=== PATIENT | female | born 1995 | race Caucasian/White ===

== ENCOUNTER 2020-11-15 11:59 | Emergency (ER) | payer OTHER ==
[~2020-11-15] VITALS: Ht 165.1 cm; Wt 67.2 kg
[2020-11-15] MEDS ORDERED: DEPO150I12 IM (12:27)
[2020-11-15 14:06] LABS: BASO # 0.1 10^3/uL (0.0-0.2); BASO % 0.9 % (0.0-1.0); EOS # 0.1 10^3/uL (0.0-0.5); EOS % 1.7 % (0.0-3.0); HEMATOCRIT 42.8 % (36.0-47.0); HEMOGLOBIN 14.2 g/dl (12.0-15.5); LYMPH # 2.3 10^3/uL (1.5-5.0); LYMPH % 29.5 % (24.0-44.0); MEAN CORPUSCULAR HEMOGLOBIN 32.7 pg (27.0-33.0); MEAN CORPUSCULAR HGB CONC 33.2 g/dl (32.0-36.5); MEAN CORPUSCULAR VOLUME 98.6 fl (80.0-96.0); MONO # 0.6 10^3/uL (0.0-0.8); MONO % 7.9 % (0.0-5.0); NEUTROPHILS # 4.7 10^3/uL (1.5-8.5); NEUTROPHILS % 59.9 % (36.0-66.0); PLATELET COUNT, AUTOMATED 209 10^3/uL (150-450); RED BLOOD COUNT 4.34 10^6/uL (4.00-5.40); WHITE BLOOD COUNT 7.8 10^3/uL (4.0-10.0)
[2020-11-15 14:20] LABS: INR 0.95; PROTHROMBIN TIME 12.9 SECONDS (12.5-14.3)
[2020-11-15 14:21] LABS: PARTIAL THROMBOPLASTIN TIME 26.7 SECONDS (24.2-38.5)
[2020-11-15 14:37] LABS: HCG, SERUM QUALITATIVE NEGATIVE (NEGATIVE)
[2020-11-15 14:41] LABS: ALBUMIN 4.1 GM/DL (3.2-5.2); ALT/SGPT 21 U/L (12-78); BILIRUBIN,TOTAL 0.7 MG/DL (0.2-1.0); BLOOD UREA NITROGEN 13 MG/DL (7-18); CARBON DIOXIDE LEVEL 24 MEQ/L (21-32); CHLORIDE LEVEL 108 MEQ/L (98-107); CK-MB VALUE MASS < 1.0 NG/ML (<3.6); CPK CREATINE PHOSPHOKINASE 44 U/L (26-192); CREATININE FOR GFR 0.58 MG/DL (0.55-1.30); FREE T4 1.02 NG/DL (0.76-1.46); GLOMERULAR FILTRATION RATE > 60.0 (>60); GLUCOSE, FASTING 81 MG/DL (70-100); MAGNESIUM LEVEL 2.2 MG/DL (1.8-2.4); MB/CK RELATIVE INDEX 2.27 (< OR =4); POTASSIUM SERUM 4.1 MEQ/L (3.5-5.1); SODIUM LEVEL 139 MEQ/L (136-145); THYROID STIMULATING HORMONE 0.814 uIU/ML (0.358-3.740); TOTAL PROTEIN 7.3 GM/DL (6.4-8.2); TROPONIN I < 0.02 NG/ML (< 0.10)
[2020-11-15 14:42] LABS: D-DIMER QUANT < 270 ng/ml (<500)
--- NOTE | 2020-11-15 15:29 | REP ---
INDICATION: near Syncope. COMPARISON: None. TECHNIQUE: Helical scanning is acquired. 5 mm axial images were reformatted. Coronal MPR images were generated. FINDINGS: Bone window settings demonstrate an intact bony calvarium. There is no evidence of skull fracture or incidental bony calvarial lesion. The visualized paranasal sinuses appear clear. No intraorbital abnormality is seen. On soft tissue window setting images; the lateral, third, and fourth ventricles are normal in size and position. Howell-white differentiation pattern is normal above and below the tentorium. There are is no evidence of intracranial hemorrhage. No mass, edema, infarction, or midline shift is seen. No extra-axial fluid collection is appreciated. IMPRESSION: Negative noncontrast head CT. <Electronically signed by Radames Anglin > 11/15/20 [id number]
[2020-11-15 16:00] VITALS: BP 115/62
--- NOTE | 2020-11-16 13:29 | ECGEPIP ---
[facility] - ED Test Date: 2020-11-15 Pat Name: TONIA MARTIN Department: Room: - Gender: Male Electroencephalogram Technologist: JONATHAN : 1995 Requested By: LEDY Larson Order Number: [id number] Reading MD: Alisha Lam Measurements Intervals Rew Rate: 56 P: 61 VT: 159 QRS: 62 QRSD: 97 T: 46 QT: 401 QTc: 390 Interpretive Statements SINUS BRADYCARDIA WITH SINUS ARRHYTHMIA No prior Electronically Signed on 11-16-2020 13:29:10 EST by Alisha Lam
== END 2020-11-15 16:15 | disposition home or self-care (01) ==
LOC: EDSEX 11:59 → M ED 11:59
DX: R55 Syncope and collapse (principal); Z79.3 Long term (current) use of hormonal contraceptives

== ENCOUNTER 2021-04-25 19:31 | Emergency (ER) | payer OTHER ==
[~2021-04-25] VITALS: Ht 165.1 cm; Wt 68.8 kg
[~2021-04-25 19:31] MED LIST: DEPO150I12 IM
[2021-04-25 20:03] LABS: BASO # 0.1 10^3/uL (0.0-0.2); BASO % 0.7 % (0.0-1.0); EOS # 0.2 10^3/uL (0.0-0.5); EOS % 1.8 % (0.0-3.0); HEMOGLOBIN 13.6 g/dl (12.0-15.5); LYMPH # 2.9 10^3/uL (1.5-5.0); LYMPH % 29.9 % (24.0-44.0); MEAN CORPUSCULAR HEMOGLOBIN 32.9 pg (27.0-33.0); MEAN CORPUSCULAR VOLUME 96.9 fl (80.0-96.0); MONO # 0.6 10^3/uL (0.0-0.8); MONO % 6.2 % (2.0-8.0); PLATELET COUNT, AUTOMATED 230 10^3/uL (150-450); RED BLOOD COUNT 4.13 10^6/uL (4.00-5.40); WHITE BLOOD COUNT 9.8 10^3/uL (4.0-10.0)
[2021-04-25 20:30] LABS: BLOOD UREA NITROGEN 16 MG/DL (7-18); CARBON DIOXIDE LEVEL 26 MEQ/L (21-32); CHLORIDE LEVEL 108 MEQ/L (98-107); CREATININE FOR GFR 0.63 MG/DL (0.55-1.30); GLOMERULAR FILTRATION RATE > 60.0 (>60); GLUCOSE, FASTING 118 MG/DL (70-100); POTASSIUM SERUM 3.5 MEQ/L (3.5-5.1); SODIUM LEVEL 140 MEQ/L (136-145)
--- NOTE | 2021-04-25 22:59 | REPVR ---
PROCEDURE INFORMATION: Exam: US , Transvaginal Exam date and time: 04/25/2021 9:28 PM Age: 25 years old Clinical indication: Pain; Other: RT adnexa and bleeding vag; Gestational age or lmp: Unk; ; Additional info: Cramping/bleeding TECHNIQUE: Imaging protocol: Real-time transvaginal obstetrical ultrasound of the maternal pelvis with image documentation. Transvaginal imaging was used for better evaluation of the fetus, adnexa, and/or cervix. COMPARISON: No relevant prior studies available. FINDINGS: Gestation: No intrauterine is identified. MATERNAL: Uterus: The uterus measures 6.7 x 3.7 x 5.1 cm. The uterus is retroverted. The endometrium measures 2.5 mm. Right adnexa: The right ovary measures 3.2 x 2.1 x 1.8 cm. Normal vascular flow. There is a heterogeneous, predominantly echogenic mass in the right adnexal region, located superiorly to the right ovary, measuring 2.9 x 1.8 x 1.9 cm. This lesion demonstrates minimal peripheral vascular flow. Although this does not have the typical sonographic appearance an ectopic , recommend close clinical follow-up in this regard. Left adnexa: The left ovary measures 3.1 x 1.9 x 2.3 cm. Normal vascular flow. Intraperitoneal space: Trace free fluid in the right adnexal region. IMPRESSION: 1. No intrauterine is identified. 2. Heterogeneous, predominantly echogenic mass in the right adnexal region, located superiorly to the right ovary, measuring 2.9 x 1.8 x 1.9 cm. This lesion demonstrates minimal peripheral vascular flow. Although this does not have the typical sonographic appearance an ectopic , recommend close clinical follow-up in this regard. Electronically signed by: Kylie Salguero On 04/25/2021 22:59:05 PM
[2021-04-25 23:37] VITALS: BP 114/61
--- NOTE | 2021-04-26 15:18 | ED PDOC ---
Post-Departure Follow-Up 1st trimester us faxed to dr brown for fu Vi Wilkes MD Apr 26, 2021 15:18
== END 2021-04-25 23:40 | disposition home or self-care (01) ==
LOC: M ED 19:31
DX: O26.891 Other specified pregnancy related conditions, first trimester (principal); R10.2 Pelvic and perineal pain

== ENCOUNTER → 2021-04-26 | Outpatient (CLI) | payer OTHER | LOC: M LAB 15:27 | PROVIDERS: ATTEND Physician Assistant | DX: O26.899 Other specified pregnancy related conditions, unspecified trimester (principal); Z3A.00 Weeks of gestation of pregnancy not specified ==

== ENCOUNTER → 2021-04-27 | Outpatient (REF) | payer OTHER | LOC: M PLALAB 12:18 | PROVIDERS: ATTEND Specialist | DX: N92.6 Irregular menstruation, unspecified (principal) ==

== ENCOUNTER → 2021-04-27 | Outpatient (REF) | payer OTHER | LOC: M SFHCWAGY 19:20 | PROVIDERS: ATTEND Specialist | DX: N92.6 Irregular menstruation, unspecified (principal) ==

== ENCOUNTER → 2021-04-30 | Outpatient (REF) | payer OTHER ==
[2021-04-30 13:33] LABS: HEMATOCRIT 41.1 % (36.0-47.0); HEMOGLOBIN 13.7 g/dl (12.0-15.5); MEAN CORPUSCULAR HEMOGLOBIN 32.5 pg (27.0-33.0); MEAN CORPUSCULAR HGB CONC 33.3 g/dl (32.0-36.5); MEAN CORPUSCULAR VOLUME 97.4 fl (80.0-96.0); PLATELET COUNT, AUTOMATED 219 10^3/uL (150-450); RED BLOOD COUNT 4.22 10^6/uL (4.00-5.40); WHITE BLOOD COUNT 7.7 10^3/uL (4.0-10.0)
[2021-04-30 14:15] LABS: ALT/SGPT 18 U/L (12-78); BILIRUBIN,TOTAL 0.5 MG/DL (0.2-1.0); BLOOD UREA NITROGEN 11 MG/DL (7-18); CALCIUM LEVEL 9.4 MG/DL (8.5-10.1); CARBON DIOXIDE LEVEL 27 MEQ/L (21-32); CHLORIDE LEVEL 104 MEQ/L (98-107); CREATININE FOR GFR 0.55 MG/DL (0.55-1.30); GLOMERULAR FILTRATION RATE > 60.0 (>60); GLUCOSE, FASTING 81 MG/DL (70-100); HCG, SERUM QUANTITATIVE 54 MIU/ML; POTASSIUM SERUM 4.2 MEQ/L (3.5-5.1); SODIUM LEVEL 136 MEQ/L (136-145); TOTAL PROTEIN 7.2 GM/DL (6.4-8.2)
== END ==
LOC: M PLALAB 09:38
PROVIDERS: ATTEND Specialist
DX: O00.90 Unspecified ectopic pregnancy without intrauterine pregnancy (principal)

== ENCOUNTER → 2021-05-07 | Outpatient (REF) | payer OTHER | LOC: M SFHCWAGY 10:20 | PROVIDERS: ATTEND Specialist | DX: O09.90 Supervision of high risk pregnancy, unspecified, unspecified trimester (principal) ==

== ENCOUNTER 2021-08-22 09:47 | Emergency (ER) | payer OTHER ==
[~2021-08-22] VITALS: Ht 175.3 cm; Wt 66.0 kg
[2021-08-22 09:48] VITALS: BP 112/55
== END 2021-08-22 12:57 | disposition left against medical advice (07) ==
LOC: M ED 09:47
DX: Z53.21 Procedure and treatment not carried out due to patient leaving prior to being seen by health care provider (principal)

== ENCOUNTER → 2021-09-11 | Outpatient (CLI) | payer OTHER | LOC: M PLALAB 12:22 | PROVIDERS: ATTEND Specialist | DX: N92.6 Irregular menstruation, unspecified (principal) ==

== ENCOUNTER → 2021-09-13 | Outpatient (CLI) | payer OTHER | LOC: M PLALAB 13:18 | PROVIDERS: ATTEND Specialist | DX: N92.6 Irregular menstruation, unspecified (principal) ==

== ENCOUNTER 2021-10-26 05:46 | Emergency (ER) | payer OTHER ==
[~2021-10-26] VITALS: Ht 165.1 cm; Wt 64.5 kg
--- OUTSIDE RECORDS SUMMARY | 2021-10-26 05:54 | CCD ---
Author Author [facility] Organization [facility] Address Unknown Phone Unavailable Care Team Providers Care Business Intelligence Reporting Analyst Name Role Phone AntoninoAbhinav Unavailable PROBLEMS Type Condition ICD9-CM Code [id number] Code Onset Dates Condition S tatus W/U Status Risk SNOMED Code Notes Problem Abnormal menstruation N92.6 Active confirmed [id number] ALLERGIES Allergen (clinical drug ingredient) Drug/Non Drug Allergy do cumented on EMR Reaction Allergy Type Onset Date Status Anesthesia S/I-40 UNSURE Drug Allergy Activ e ENCOUNTERS from 1994 to 2021-08-22 Encounter Location Date Provider Diagnosis [facility] [address] [facility] [phone] [place] [address] Aug, Abhinav Muñiz IMMUNIZATIONS No Information SOCIAL HISTORY Tobacco Use: Social History Observation Description Date Details (start date - stop date) Current Smoker Sex Assigned At : Social History Observation Description Sex Assigned At Unknown Sexual Hx: Question Answer Notes Had sex in the last 12 months (vaginal, oral, or anal)? Yes with Men only Tobacco Use: Question Answer Notes Are you a: current smoker REASON FOR REFERRAL No Information VITAL SIGNS No information MEDICATIONS Medication SIG (Take, Route, Frequency, Duration) Notes Start Da te End Date Status 28-0.8 MG 1 tablet Orally Once a day Active PROCEDURES No Information RESULTS No Results REASON FOR VISIT BURNING FEELING GERMÁN UTERUS MEDICAL (GENERAL) HISTORY Type Description Date Surgical History mouth Surgical History ear surgery Hospitalization History childbirth Goals Section No Information Health Concerns No Information MEDICAL EQUIPMENT No Information MENTAL STATUS No Information FUNCTIONAL STATUS No Information ASSESSMENTS No Information PLAN OF TREATMENT Next Appt Details Provider Name:Abhinav Muñiz, 2021-09-11 11:00:00 AM, [address], , [place], [address], Insurance Providers Payer Name Payer Address Payer Phone Insured Name Patient Relati onship to Insured Coverage Start Date Coverage End Date [facility] COMM[facility] PLAN [facility] [address] [facility] [phone] TONIA MARTIN self
--- OUTSIDE RECORDS SUMMARY | 2021-10-26 05:54 | CCD ---
Author Author [facility] Organization [facility] Address Unknown Phone Unavailable Support Name Relationship Address Phone UE Next Of Kin Unknown Unavailable KOHLSWTN Next Of Kin [address] [facility] [address] ELVIN MILTON Next Of Kin [address] [address] ELVIN MILTON ECON [address] [address] Unavailable Re-disclosure Warning The records that you are about to access may contain information from federally-assisted alcohol or drug abuse programs. If such information is present, then the following federally mandated warning applies: This information has been disclosed to you from records protected by federal confidentiality rules (42 CFR part 2). The federal rules prohibit you from making any further disclosure of this information unless further disclosure is expressly permitted by the written consent of the person to whom it pertains or as otherwise permitted by 42 CFR part 2. A general authorization for the release of medical or other information is NOT sufficient for this purpose. The Federal rules restrict any use of the information to criminally investigate or prosecute any alcohol or drug abuse patient.The records that you are about to access may contain highly sensitive health information, the redisclosure of which is protected by Article 27-F of the [facility] Public Health law. If you continue you may have access to information: Regarding HIV / AIDS; Provided by facilities licensed or operated by the [facility] Office of Mental Health; or Provided by the [facility] Office for People With Developmental Disabilities. If such information is present, then the following [facility] mandated warning applies: This information has been disclosed to you from confidential records which are protected by state law. State law prohibits you from making any further disclosure of this information without the specific written consent of the person to whom it pertains, or as otherwise permitted by law. Any unauthorized further disclosure in violation of state law may result in a fine or mcc sentence or both. A general authorization for the release of medical or other information is NOT sufficient authorization for further disc losure. Encounters Encounter Providers Location Date Indications Data Source(s ) ( ESTOB) [facility] Est OB [address] [place] [address] 09/26/2021 12:00:00 AM EST eCW1 ([facility]) Unknown [address] [facility] [address] 09/18/2021 12:00:00 AM EDT eCW1 ([facility]) ( 15ESGYN) [facility] 15 min est histopathologist [address] [place] [address] 09/11/2021 12:00:00 AM EDT eCW1 ([facility]) Unknown [address] [facility] [address] 08/22/2021 12:00:00 AM EDT eCW1 ([facility]) Unknown [address] [facility] [address] 08/22/2021 12:00:00 AM EDT eCW1 ([facility]) Unknown [address] [facility] [place] [address] 05/03/2021 12:00:00 AM EDT eCW1 ([facility]) Unknown [address] [facility] [place] [address] 05/03/2021 12:00:00 AM EDT eCW1 ([facility]) Unknown [address] [facility] [place] [address] 04/30/2021 12:00:00 AM EDT eCW1 ([facility]) Unknown [address] [facility] [place] [address] 04/30/2021 12:00:00 AM EDT eCW1 ([facility]) ( 15ESGYN) [facility] 15 min est histopathologist [address] [place] [address] 04/30/2021 12:00:00 AM EDT eCW1 ([facility]) (WC 15ESGYN) [facility] 15 min est histopathologist [address] [place] [address] 04/27/2021 12:00:00 AM EDT eCW1 ([facility]) Medications Medication Brand Name Start Date Product Form Dose Route Admi nistrative Instructions Pharmacy Instructions Status Indications Reaction Description Data Source(s) Ondansetron 4 MG Disintegrating Oral Tablet Ondansetron 4 MG 09/26/2021 12:00:00 AM EST 1.0 {tablet_on_the_tongue_and_allow_to_dissolve} active Ondansetron 4 MG eCW1 ([facility]) Insurance Providers Payer name Policy type / Coverage type Policy ID Covered republican ID Covered republican's relationship to jackson Policy Jackson Plan Information [facility] COMM[facility]AN [facility] [id number] SP [id number] [employer] [facility] [id number] SP [id number] [facility] O [id number] S [id number] O UNAVAILABLE UNAVAILA BLE Problems, Conditions, and Diagnoses Code Display Name Description Problem Type Effective Dates Data Source(s) Z34.80 care Supervision of other normal P yanelymattm 09/21/2021 12:00:00 AM EDT eCW1 ([facility]) N92.6 Irregular periods Irregular bleeding Problem 09/11/2021 12:00:00 AM EDT eCW1 ([facility]) N92.6 Abnormal menstruation Abnormal menstruation Problem 04/27/2021 12:00:00 AM EDT eCW1 ([facility]) Surgeries/Procedures No Information Results ID Date Data Source HCG, SERUM QUANTITATIVE 09/11/2021 12:00:00 AM EDT eCW1 ([facility]) Name Value Range Interpretation Code Description Data Nerissa rce(s) Supporting Document(s) 914 HCG, SERUM QUANTITATIVE eCW1 ( [facility]) ID Date Data Source Comprehensive Metabolic Profile (CMP) 04/30/2021 12:00:00 AM EDT eCW1 ([facility]) Name Value Range Interpretation Code Description Data Nerissa rce(s) Supporting Document(s) 81 70-100 GLUCOSE, FASTING eCW1 ([facility]) > 60.0 >60 GLOMERULAR FILTRATION RATE eCW 1 ([facility]) 0.55 0.55-1.30 CREATININE FOR GFR eCW1 ([facility]) 136 136-145 SODIUM LEVEL eCW1 ([facility]) 11 7-18 BLOOD UREA NITROGEN eCW1 ([facility]) 104 98-107 CHLORIDE LEVEL eCW1 ([facility]) 27 21-32 CARBON DIOXIDE LEVEL eCW1 ([facility]) 4.2 3.5-5.1 POTASSIUM SERUM eCW1 ([facility]) 10 7-37 AST/SGOT eCW1 ([facility]) 18 12-78 ALT/SGPT eCW1 ([facility]) 80 45-117 ALKALINE PHOSPHATASE eCW1 ([facility]) 9.4 8.5-10.1 CALCIUM LEVEL eCW1 ([facility]) 7.2 6.4-8.2 TOTAL PROTEIN eCW1 ([facility]) 4.0 3.2-5.2 ALBUMIN eCW1 ([facility]) 0.5 0.2-1.0 BILIRUBIN,TOTAL eCW1 ([facility]) 1.3 1.2-2.2 ALBUMIN/GLOBULIN RATIO eCW1 ([facility]) ID Date Data Source CBC - Complete Blood Count 04/30/2021 12:00:00 AM EDT eCW1 ( [facility]) Name Value Range Interpretation Code Description Data Nerissa rce(s) Supporting Document(s) 7.7 4.0-10.0 WHITE BLOOD COUNT eCW1 ([facility]) 13.7 12.0-15.5 HEMOGLOBIN eCW1 ([facility]) 41.1 36.0-47.0 HEMATOCRIT eCW1 ([facility]) 4.22 4.00-5.40 RED BLOOD COUNT eCW1 ([facility]) 33.3 32.0-36.5 MEAN CORPUSCULAR HGB CONC eCW1 ([facility]) 32.5 27.0-33.0 MEAN CORPUSCULAR HEMOGLOB IN eCW1 ([facility]) 97.4 80.0-96.0 MEAN CORPUSCULAR VOLUME e CW1 ([facility]) 11.9 11.5-14.5 RED CELL DISTRIBUTION WID TH eCW1 ([facility]) 219 150-450 PLATELET COUNT, AUTOMATED eCW1 ([facility]) Procedure Social History Code Duration Value Status Description Data Source(s ) Smoking 09/26/2021 12:00:00 AM EST Current Smoker completed Curre nt Smoker eCW1 ([facility]) Smoking 09/11/2021 12:00:00 AM EDT Current Smoker completed Curre nt Smoker eCW1 ([facility]) Smoking 09/11/2021 12:00:00 AM EDT Current Smoker completed Curre nt Smoker eCW1 ([facility]) Smoking 04/30/2021 12:00:00 AM EDT Current Smoker completed Curre nt Smoker eCW1 ([facility]) Smoking 04/30/2021 12:00:00 AM EDT Current Smoker completed Curre nt Smoker eCW1 ([facility]) Smoking 04/30/2021 12:00:00 AM EDT Current Smoker completed Curre nt Smoker eCW1 ([facility]) Smoking 04/30/2021 12:00:00 AM EDT Current Smoker completed Curre nt Smoker eCW1 ([facility]) Smoking 04/30/2021 12:00:00 AM EDT Current Smoker completed Curre nt Smoker eCW1 ([facility]) Smoking 04/30/2021 12:00:00 AM EDT Current Smoker completed Curre nt Smoker eCW1 ([facility]) Smoking 04/30/2021 12:00:00 AM EDT Current Smoker completed Curre nt Smoker eCW1 ([facility]) Smoking 04/30/2021 12:00:00 AM EDT Current Smoker completed Curre nt Smoker eCW1 ([facility]) Vital Signs ID Date Data Source UNK Name Value Range Interpretation Code Description Data Source(s) Body weight 143.2 [lb_av] 143.2 [lb_av] eCW1 ([facility]) Body height 65 [in_i] 65 [in_i] eCW1 ([facility]) Body mass index (BMI) [Ratio] 23.83 kg/m2 23.83 kg/m2 eCW1 ([facility]) Systolic blood pressure 112 mm[Hg] 112 mm[Hg] e CW1 ([facility]) Diastolic blood pressure 68 mm[Hg] 68 mm[Hg] eCW1 ([facility]) Body weight 147.2 [lb_av] 147.2 [lb_av] eCW1 ([facility]) Body height 65 [in_i] 65 [in_i] eCW1 ([facility]) Body mass index (BMI) [Ratio] 24.49 kg/m2 24.49 kg/m2 eCW1 ([facility]) Systolic blood pressure 116 mm[Hg] 116 mm[Hg] e CW1 ([facility]) Diastolic blood pressure 70 mm[Hg] 70 mm[Hg] eCW1 ([facility]) Body weight 150.2 [lb_av] 150.2 [lb_av] eCW1 ([facility]) Body height 65 [in_i] 65 [in_i] eCW1 ([facility]) Body mass index (BMI) [Ratio] 24.99 kg/m2 24.99 kg/m2 eCW1 ([facility]) Systolic blood pressure 122 mm[Hg] 122 mm[Hg] e CW1 ([facility]) Diastolic blood pressure 72 mm[Hg] 72 mm[Hg] eCW1 ([facility]) Body mass index (BMI) [Ratio] 24.96 kg/m2 24.96 kg/m2 W1 ([facility]) Body weight 150 [lb_av] 150 [lb_av] eCW1 ([facility]) Body height 65 [in_i] 65 [in_i] eCW1 ([facility]) Systolic blood pressure 122 mm[Hg] 122 mm[Hg] e CW1 ([facility]) Diastolic blood pressure 70 mm[Hg] 70 mm[Hg] eCW1 ([facility]) Patient Treatment Plan of Care Planned Activity Planned Date Details Description Data Source (s) Ondansetron 4 MG Disintegrating Oral Tablet 09/26/2021 12:00:00 AM EST eCW1 ([facility])
--- OUTSIDE RECORDS SUMMARY | 2021-10-26 05:54 | CCD ---
Author Author [facility] Organization [facility] Address Unknown Phone Unavailable Care Team Providers Care University Administrator Name Role Phone Abhinav Muñiz Unavailable PROBLEMS ALLERGIES ENCOUNTERS from 1995 to 2021-09-18 IMMUNIZATIONS No Information SOCIAL HISTORY REASON FOR REFERRAL No Information VITAL SIGNS MEDICATIONS PROCEDURES No Information RESULTS REASON FOR VISIT MEDICAL (GENERAL) HISTORY Goals Section Health Concerns MEDICAL EQUIPMENT No Information MENTAL STATUS FUNCTIONAL STATUS ASSESSMENTS PLAN OF TREATMENT Insurance Providers
--- OUTSIDE RECORDS SUMMARY | 2021-10-26 05:54 | CCD ---
Author Author [facility] Organization [facility] Address Unknown Phone Unavailable Care Team Providers Care Supervisor Weaving Name Role Phone Antonino Abhinav Unavailable PROBLEMS Type Condition ICD9-CM Code KGY09-VY Code Onset Dates Condition S tatus W/U Status Risk SNOMED Code Notes Problem Abnormal menstruation N92.6 Active confirmed [id number] Problem Supervision of other normal Z34.80 Ac tive confirm [id number] Problem Irregular bleeding N92.6 Active confirmed 8 5640487 ALLERGIES Allergen (clinical drug ingredient) Drug/Non Drug Allergy do cumented on EMR Reaction Allergy Type Onset Date Status Anesthesia S/I-40 UNSURE Drug Allergy Activ e ENCOUNTERS from 1994 to 2021-10-03 Encounter Location Date Provider Diagnosis [facility] [address] [phone] [place] [address] Sep, Abhinav Rodriguez Encounter for superv ision of other normal , first trimester Z34.81 and 7 weeks gestation of Z3A.01 IMMUNIZATIONS No Information SOCIAL HISTORY Tobacco Use: Social History Observation Description Date Details (start date - stop date) Current Smoker Sex Assigned At : Social History Observation Description Sex Assigned At Unknown Sexual Hx: Question Answer Notes Had sex in the last 12 months (vaginal, oral, or anal)? Yes with Men only Alcohol Screening: Question Answer Notes Did you have a drink containing alcohol in the past year? No Points 0 Interpretation Negative Tobacco Use: Question Answer Notes Are you a: current smoker How many cigarettes a day do you smoke? 6-10 Are you interested in quitting? Ready to quit Counseled the patient on tobacco use, cessation provided 08/2021 REASON FOR REFERRAL No Information VITAL SIGNS Weight 143.2 lbs Sep, Height 65 in Sep, BMI 23.83 kg/m2 Sep, Blood pressure systolic 112 mm Hg Sep, Blood pressure diastolic 68 mm Hg Sep, MEDICATIONS Medication SIG (Take, Route, Frequency, Duration) Notes Start Da te End Date Status 28-0.8 MG 1 tablet Orally Once a day Active Ondansetron 4 MG 1 tablet on the tongue and a llow to dissolve Orally every 6 hours as needed for 30 day(s) Sep, Ac tive PROCEDURES No Information RESULTS No Results REASON FOR VISIT 1ST PN PER DR RODRIGUEZ MEDICAL (GENERAL) HISTORY Type Description Date Medical History ADHD Surgical History mouth Surgical History ear surgery Hospitalization History childbirth Goals Section No Information Health Concerns No Information MEDICAL EQUIPMENT No Information MENTAL STATUS No Information FUNCTIONAL STATUS No Information ASSESSMENTS Encounter Date Diagnosis Assessment Notes Treatment Notes Treatm ent Clinical Notes Sep, Encounter for supervision of other normal , first trimester (ICD-10 - Z34.81) Sep, 7 weeks gestation of (ICD-10 - Z3A.01) PLAN OF TREATMENT Medication Medication Name Sig Start Date Stop Date Ondansetron 4 MG 1 tablet on the tongue and a llow to dissolve Orally every 6 hours as needed for 30 day(s) Sep, Pending Tests Test Name Order Date Type and Screen Prenatal1 2021-09-26 CBC - Complete Blood Count 2021-09-26 CHLAMYDIA and GC DNA AMPLIFICAT 2021-09-26 HEPATITIS C ANTIBODY INDEX 2021-09-26 HIV 1and2 SCREEN CENTAUR 2021-09-26 SYPHILIS (RPR SCREEN) 2021-09-26 RUBELLA IMMUNE STATUS IgG 2021-09-26 URINE CULTURE 2021-09-26 HBSAG 2021-09-26 Next Appt Details Provider Name:Abhinav Rodriguez, 2021-10-30 09:45:00 AM, [address], , [place], [address], Insurance Providers Payer Name Payer Address Payer Phone Insured Name Patient Relati onship to Insured Coverage Start Date Coverage End Date [facility] [address] [facility] [phone] TONIA MARTIN self
--- OUTSIDE RECORDS SUMMARY | 2021-10-26 05:54 | CCD ---
Author Author [facility] [facility] Organization [facility] Address Unknown Phone Unavailable Care Team Providers Care Director Of Archives Name Role Phone AntioneJeremy Unavailable PROBLEMS Type Condition ICD9-CM Code UYR67-MA Code Onset Dates Condition S tatus W/U Status Risk SNOMED Code Notes Problem Abnormal menstruation N92.6 Active confirmed [id number] ALLERGIES Allergen (clinical drug ingredient) Drug/Non Drug Allergy do cumented on EMR Reaction Allergy Type Onset Date Status Anesthesia S/I-40 UNSURE Drug Allergy Activ e ENCOUNTERS from 1994 to 2021-08-22 Encounter Location Date Provider Diagnosis [facility] [address] [address] [facility] [phone] [place] [address] Aug, Jeremy Talbot IMMUNIZATIONS No Information SOCIAL HISTORY Tobacco Use: [...] Information RESULTS No Results REASON FOR VISIT No Information MEDICAL (GENERAL) HISTORY Type Description Date Surgical History mouth Surgical History ear surgery Hospitalization History childbirth Goals Section No Information Health Concerns No Information MEDICAL EQUIPMENT No Information MENTAL STATUS No Information FUNCTIONAL STATUS No Information ASSESSMENTS No Information PLAN OF TREATMENT Next Appt Details Provider Name:Abhinav Muñiz, 2021-09-11 11:00:00 AM, [address] [facility], , [place], [address], Insurance Providers Payer Name Payer Address Payer Phone Insured Name Patient Relati onship to Insured Coverage Start Date Coverage End Date [facility] COMMUN[facility] PLAN [facility] [address] [facility] [phone] TONIA MARTIN self
--- OUTSIDE RECORDS SUMMARY | 2021-10-26 05:54 | CCD ---
Author Author [employer] Organization [employer] Address Unknown Phone Unavailable Care Team Providers Care Cryogenic Transport Driver Name Role Phone MuñizAbhinav Unavailable PROBLEMS Type Condition ICD9-CM Code [id number] Code Onset Dates Condition S tatus W/U Status Risk SNOMED Code Notes Problem Irregular bleeding N92.6 Active confirmed [id number] Problem Abnormal menstruation N92.6 Active confirmed [id number] ALLERGIES Allergen (clinical drug ingredient) Drug/Non Drug Allergy do cumented on EMR Reaction Allergy Type Onset Date Status Anesthesia S/I-40 UNSURE Drug Allergy Activ e ENCOUNTERS from 1994 to 2021-09-18 Encounter Location Date Provider Diagnosis [facility] [address] [place] [address] [place] [address] Sep, Abhinav Muñiz IMMUNIZATIONS No Information SOCIAL HISTORY [...] the patient on tobacco use, cessation provided REASON FOR REFERRAL No Information VITAL SIGNS No information MEDICATIONS Medication SIG (Take, Route, Frequency, Duration) Notes Start Da te End Date Status 28-0.8 MG 1 tablet Orally Once a day Active PROCEDURES No Information RESULTS No Results REASON FOR VISIT No Information MEDICAL (GENERAL) HISTORY Type Description Date Medical History ADHD Surgical History mouth Surgical History ear surgery Hospitalization History childbirth Goals Section No Information Health Concerns No Information MEDICAL EQUIPMENT No Information MENTAL STATUS No Information FUNCTIONAL STATUS No Information ASSESSMENTS No Information PLAN OF TREATMENT Next Appt Details Provider Name:Abhinav Muñiz, 2021-09-26 09:00:00 AM, [address] [place] [address], , [place], [address], Insurance Providers Payer Name Payer Address Payer Phone Insured Name Patient Relati onship to Insured Coverage Start Date Coverage End Date [employer] [facility] [address] [facility] [phone] TONIA MARTIN self
[2021-10-26] MEDS ORDERED: NS 1,000 ML IV ONE (06:20)
[2021-10-26] MEDS ORDERED: ONDANSETRON 4MG/2ML VIAL IV ONE (06:20)
[2021-10-26] MEDS ORDERED: MORPHINE 4 MG/ML 1ML VIAL/SYRINGE (J2270) IV ONE (06:20)
[2021-10-26 06:26] LABS: BASO # 0.1 10^3/uL (0.0-0.2); BASO % 0.7 % (0.0-1.0); EOS # 0.4 10^3/uL (0.0-0.5); EOS % 3.8 % (0.0-3.0); HEMATOCRIT 40.8 % (36.0-47.0); LYMPH # 2.6 10^3/uL (1.5-5.0); LYMPH % 23.5 % (24.0-44.0); MEAN CORPUSCULAR HEMOGLOBIN 32.5 pg (27.0-33.0); MEAN CORPUSCULAR HGB CONC 34.3 g/dl (32.0-36.5); MEAN CORPUSCULAR VOLUME 94.7 fl (80.0-96.0); MONO # 1.1 10^3/uL (0.0-0.8); MONO % 9.6 % (2.0-8.0); NEUTROPHILS # 6.7 10^3/uL (1.5-8.5); NEUTROPHILS % 61.9 % (36.0-66.0); PLATELET COUNT, AUTOMATED 257 10^3/uL (150-450); RED BLOOD COUNT 4.31 10^6/uL (4.00-5.40); WHITE BLOOD COUNT 10.9 10^3/uL (4.0-10.0)
[2021-10-26 06:31] LABS: APPEARANCE, URINE MANUAL TURBID (CLEAR); COLOR, URINE MANUAL RED (YELLOW)
[2021-10-26 06:32] LABS: GLUCOSE, URINE (UA) MANUAL NEGATIVE (NEGATIVE); KETONE, URINE MANUAL NEGATIVE (NEGATIVE); PROTEIN, URINE MANUAL 3+ mg/dL (NEGATIVE)
[2021-10-26 06:33] LABS: BILIRUBIN, URINE MANUAL NEGATIVE (NEGATIVE); NITRITE, URINE MANUAL NEGATIVE (NEGATIVE); UROBILINOGEN, URINE MANUAL NORMAL (NORMAL)
[2021-10-26 06:34] LABS: BLOOD URINE MANUAL POSITIVE (NEGATIVE); LEUKOCYTE ESTERASE, URINE MAN TRACE (NEGATIVE)
[2021-10-26 06:37] LABS: RBC, URINE TNTC /hpf (0-3); SQUAMOUS EPITHELIAL CELL URINE SMALL AMOUNT /hpf (SMALL AMT)
[2021-10-26 06:38] LABS: BACTERIA, URINE SMALL AMOUNT; HYALINE CAST, URINE NONE SEEN /lpf (0-1)
--- OUTSIDE RECORDS SUMMARY | 2021-10-26 07:08 | CCD ---
Author Author [facility] Organization [facility] Address Unknown Phone Unavailable Support Name Relationship Address Phone UE Next Of Kin Unknown Unavailable [place] Next Of Kin [address] [facility] [place] [address] ELVIN MILTON Next Of Kin [address] A PT [address] [address] ELVIN MILTON ECON [address] [place] PT [address] [address] Unavailable Re-disclosure Warning The records that you [...] is protected by Article 27-F of the [facility] Public Health law. If you continue you may have access to information: Regarding HIV / AIDS; Provided by facilities licensed or operated by the [facility] Office of Mental Health; or Provided by the [facility] Office for People With Developmental Disabilities. If such information is present, then the following [facility] mandated warning applies: This information has been [...] law may result in a fine or fci sentence or both. A general authorization for the release of medical or other information is NOT sufficient authorization for further disc losure. 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 [address] [place] [address] 09/11/2021 12:00:00 AM EDT eCW1 ([facility]) Unknown [address] [facility] [address] 08/22/2021 12:00:00 AM EDT eCW1 ([facility]) Unknown [address] [facility] [address] 08/22/2021 12:00:00 AM EDT eCW1 ([facility]) Unknown [address] [facility] [place] [address] 05/03/2021 12:00:00 AM EDT eCW1 ([facility]) Unknown [address] [facility] [place] [address] 05/03/2021 12:00:00 AM EDT eCW1 ([facility]) Unknown [address] [facility] [address] [address] 04/30/2021 12:00:00 AM EDT eCW1 ([facility]) Unknown [address] [facility] [place] [address] 04/30/2021 12:00:00 AM EDT eCW1 ([facility]) ( 15ESGYN) [facility] 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 [address] [place] [address] 04/30/2021 12:00:00 AM EDT eCW1 ([facility]) (WC 15ESGYN) [facility] 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 [address] [place] [address] 04/27/2021 12:00:00 AM EDT eCW1 ([facility]) Medications Medication Brand Name Start Date Product Form Dose Route Admi nistrative Instructions Pharmacy Instructions Status Indications Reaction Description Data Source(s) Ondansetron 4 MG Disintegrating Oral Tablet Ondansetron 4 MG 09/26/2021 12:00:00 AM EST 1.0 {tablet_on_the_tongue_and_allow_to_dissolve} active Ondansetron 4 MG eCW1 ([facility]) Insurance Providers Payer name Policy type / Coverage type Policy ID Covered alliance party ID Covered alliance party's relationship to jackson Policy Jackson Plan Information [facility] [id number] SP [id number] [facility] [id number] SP [id number] [facility] O [id number] S [id number] O UNAVAILABLE UNAVAILA BLE Problems, Conditions, and Diagnoses Code Display Name Description Problem Type Effective Dates Data Source(s) Z34.80 care Supervision of other normal P [email or web address] 09/21/2021 12:00:00 AM EDT eCW1 ([facility]) N92.6 Irregular periods Irregular bleeding Problem 09/11/2021 12:00:00 AM EDT eCW1 ([facility]) N92.6 Abnormal menstruation Abnormal menstruation Problem 04/27/2021 12:00:00 AM EDT eCW1 ([facility]) Surgeries/Procedures No Information Results ID Date Data Source HCG, SERUM QUANTITATIVE 09/11/2021 12:00:00 AM EDT eCW1 ([facility]) Name Value Range Interpretation Code Description Data Nerissa rce(s) Supporting Document(s) 914 HCG, SERUM QUANTITATIVE eCW1 ( [facility]) ID Date Data Source Comprehensive Metabolic Profile (CMP) 04/30/2021 12:00:00 AM EDT eCW1 ([facility]) Name Value Range Interpretation Code Description Data Nerissa rce(s) Supporting Document(s) 81 70-100 GLUCOSE, FASTING eCW1 ([facility]) > 60.0 >60 GLOMERULAR FILTRATION RATE eCW 1 ([facility]) 0.55 0.55-1.30 CREATININE FOR GFR eCW1 ([facility]) 136 136-145 SODIUM LEVEL eCW1 ([facility]) 11 7-18 BLOOD UREA NITROGEN eCW1 ([facility]) 104 98-107 CHLORIDE LEVEL eCW1 ([facility]) 27 21-32 CARBON DIOXIDE LEVEL eCW1 ([facility]) 4.2 3.5-5.1 POTASSIUM SERUM eCW1 ([facility]) 10 7-37 AST/SGOT eCW1 ([facility]) 18 12-78 ALT/SGPT eCW1 ([facility]) 80 45-117 ALKALINE PHOSPHATASE eCW1 ([facility]) 9.4 8.5-10.1 CALCIUM LEVEL eCW1 ([facility]) 7.2 6.4-8.2 TOTAL PROTEIN eCW1 ([facility]) 4.0 3.2-5.2 ALBUMIN eCW1 ([facility]) 0.5 0.2-1.0 BILIRUBIN,TOTAL eCW1 ([facility]) 1.3 1.2-2.2 ALBUMIN/GLOBULIN RATIO eCW1 ([facility]) ID Date Data Source CBC - Complete Blood Count 04/30/2021 12:00:00 AM EDT eCW1 ( [facility]) Name Value Range Interpretation Code Description Data Nerissa rce(s) Supporting Document(s) 7.7 4.0-10.0 WHITE BLOOD COUNT eCW1 ([facility]) 13.7 12.0-15.5 HEMOGLOBIN eCW1 ([facility]) 41.1 36.0-47.0 HEMATOCRIT eCW1 ([facility]) 4.22 4.00-5.40 RED BLOOD COUNT eCW1 ([facility]) 33.3 32.0-36.5 MEAN CORPUSCULAR HGB CONC eCW1 ([facility]) 32.5 27.0-33.0 MEAN CORPUSCULAR HEMOGLOB IN eCW1 ([facility]) 97.4 80.0-96.0 MEAN CORPUSCULAR VOLUME e CW1 ([facility]) 11.9 11.5-14.5 RED CELL DISTRIBUTION WID TH eCW1 ([facility]) 219 150-450 PLATELET COUNT, AUTOMATED eCW1 ([facility]) Procedure Social History Code Duration Value Status Description Data Source(s ) Smoking 09/26/2021 12:00:00 AM EST Current Smoker completed Curre nt Smoker eCW1 ([facility]) Smoking 09/11/2021 12:00:00 AM EDT Current Smoker completed Curre nt Smoker eCW1 ([facility]) Smoking 09/11/2021 12:00:00 AM EDT Current Smoker completed Curre nt Smoker eCW1 ([facility]) Smoking 04/30/2021 12:00:00 AM EDT Current Smoker completed Curre nt Smoker eCW1 ([facility]) Smoking 04/30/2021 12:00:00 AM EDT Current Smoker completed Curre nt Smoker eCW1 ([facility]) Smoking 04/30/2021 12:00:00 AM EDT Current Smoker completed Curre nt Smoker eCW1 ([facility]) Smoking 04/30/2021 12:00:00 AM EDT Current Smoker completed Curre nt Smoker eCW1 ([facility]) Smoking 04/30/2021 12:00:00 AM EDT Current Smoker completed Curre nt Smoker eCW1 ([facility]) Smoking 04/30/2021 12:00:00 AM EDT Current Smoker completed Curre nt Smoker eCW1 ([facility]) Smoking 04/30/2021 12:00:00 AM EDT Current Smoker completed Curre nt Smoker eCW1 ([facility]) Smoking 04/30/2021 12:00:00 AM EDT Current Smoker completed Curre nt Smoker eCW1 ([facility]) Vital Signs ID Date Data Source UNK Name Value Range Interpretation Code Description Data Source(s) Body weight 143.2 [lb_av] 143.2 [lb_av] eCW1 ([facility]) Body height 65 [in_i] 65 [in_i] eCW1 ([facility]) Body mass index (BMI) [Ratio] 23.83 kg/m2 23.83 kg/m2 eCW1 ([facility]) Systolic blood pressure 112 mm[Hg] 112 mm[Hg] e CW1 ([facility]) Diastolic blood pressure 68 mm[Hg] 68 mm[Hg] eCW1 ([facility]) Body mass index (BMI) [Ratio] 24.49 kg/m2 24.49 kg/m2 eCW1 ([facility]) Systolic blood pressure 116 mm[Hg] 116 mm[Hg] e CW1 ([facility]) Diastolic blood pressure 70 mm[Hg] 70 mm[Hg] eCW1 ([facility]) Body height 65 [in_i] 65 [in_i] eCW1 ([facility]) Body weight 147.2 [lb_av] 147.2 [lb_av] eCW1 ([facility]) Body weight 150.2 [lb_av] 150.2 [lb_av] eCW1 ([facility]) Body height 65 [in_i] 65 [in_i] eCW1 ([facility]) Body mass index (BMI) [Ratio] 24.99 kg/m2 24.99 kg/m2 eCW1 ([facility]) Systolic blood pressure 122 mm[Hg] 122 mm[Hg] e CW1 ([facility]) Diastolic blood pressure 72 mm[Hg] 72 mm[Hg] eCW1 ([facility]) Body weight 150 [lb_av] 150 [lb_av] eCW1 ([facility]) Body height 65 [in_i] 65 [in_i] eCW1 ([facility]) Body mass index (BMI) [Ratio] 24.96 kg/m2 24.96 kg/m2 W1 ([facility]) Systolic blood pressure 122 mm[Hg] 122 mm[Hg] e CW1 ([facility]) Diastolic blood pressure 70 mm[Hg] 70 mm[Hg] eCW1 ([facility]) Patient Treatment Plan of Care Planned Activity Planned Date Details Description Data Source (s) Ondansetron 4 MG Disintegrating Oral Tablet 09/26/2021 12:00:00 AM EST eCW1 ([facility])
--- NOTE | 2021-10-26 07:49 | REPVR ---
PROCEDURE INFORMATION: Exam: US Duplex Artery or Vein of the Abdominal and/or Reproductive Organs, Limited Ovaries Exam date and time: 10/26/2021 6:40 AM Age: 26 years old Clinical indication: Pain; Other: Vaginal bleeding; Gestational age or lmp: 11wks; ; Additional info: Vag bleeding TECHNIQUE: Imaging protocol: Real-time duplex ultrasound scan of the arterial or venous flow with fuentes scale, color Doppler flow and spectral waveform analysis with image documentation. Limited duplex exam focused on the ovaries. Duplex images required to evaluate for torsion and other vascular conditions. COMPARISON: No relevant prior studies available. FINDINGS: Right ovary/adnexa: Appropriate duplex blood flow within the right ovary with color Doppler and arterial waveforms. No evidence of torsion. Left ovary/adnexa: Appropriate duplex blood flow within the left ovary with color Doppler and arterial waveforms. No evidence of torsion. IMPRESSION: 1. No evidence of ovarian torsion. 2. See complete ultrasound report below. PROCEDURE INFORMATION: Exam: US First Trimester, Transabdominal and US , Transvaginal Exam date and time: 10/26/2021 6:40 AM Age: 26 years old Clinical indication: Pain; Other: Vaginal bleeding; Gestational age or lmp: 11wks; ; Additional info: Vag bleeding TECHNIQUE: Imaging protocol: Real-time transabdominal obstetrical ultrasound of the maternal pelvis and a first trimester , less than 14 weeks 0 days, with image documentation. Transvaginal imaging was used for better evaluation of the fetus, adnexa, and/or cervix. COMPARISON: No relevant prior studies available. FINDINGS: Gestation: Small sac-like structure within the lower uterine segment with a mean sac diameter of 5 mm which would correspond to 5 weeks 0 days. No yolk sac or pole visualized at this time. Heterogeneous echogenic material within the lower uterine segment may represent blood products or products of conception. MATERNAL: Uterus: Uterus is retroverted measuring 8.5 x 4.7 x 5.7 cm. No myometrial mass. Cervix: Unremarkable. Right ovary/adnexa: Right ovary measures 2.4 x 1.8 x 1.6 cm and is unremarkable. Blood flow present within the right ovary. No adnexal mass. Left ovary/adnexa: Left ovary measures 1.9 x 1.8 x 1.6 cm and is unremarkable. Blood flow present within the left ovary. No adnexal mass. Intraperitoneal space: Trace free fluid. IMPRESSION: Small sac-like structure within the lower uterine segment. No yolk sac or pole visualized at this time. Heterogeneous echogenic material within the lower uterine segment may represent blood products or products of conception. Findings are most consistent with failed . Early intrauterine gestational sac or pseudosac in the setting of ectopic cannot be excluded. No adnexal masses are visualized. Recommend clinical correlation as well as correlation with serial beta hCG and short-term follow-up ultrasound as clinically warranted. Electronically signed by: Thony Martin On 10/26/2021 07:48:40 AM
[2021-10-26] MEDS ORDERED: HYDR-3713 PO (08:19)
[2021-10-26 09:07] VITALS: BP 114/58
== END 2021-10-26 09:17 | disposition home or self-care (01) ==
LOC: M ED 05:46
DX: O03.4 Incomplete spontaneous abortion without complication (principal); N93.9 Abnormal uterine and vaginal bleeding, unspecified; Z88.4 Allergy status to anesthetic agent
CPT/HCPCS: 76801; 81000; 84702; 85025; 86850; 86900; 86901; 87086; 96361; 96374; 99284; J2270; J2405

== ENCOUNTER → 2022-04-22 | Outpatient (CLI) | payer OTHER ==
[~2022-04-22] MED LIST changes: +HYDR-3713 PO
== END ==
LOC: M LAB 08:38
DX: N91.2 Amenorrhea, unspecified (principal)

== ENCOUNTER → 2022-10-25 | Outpatient (REF) | payer OTHER ==
[~2022-10-25] MED LIST changes: +ACET-683 PO; +COLA100C5 PO; +IBUP-1022 PO; +PRENTAB9 PO; +TUMS750C5 PO
== END ==
LOC: M SFHCWAGY 12:49
PROVIDERS: ATTEND Advanced Practice Midwife
DX: Z34.93 Encounter for supervision of normal pregnancy, unspecified, third trimester (principal)

== ENCOUNTER 2022-11-18 16:08 | Inpatient (IN) | payer OTHER ==
[2022-11-18] VITALS (19 sets, daily range): BP systolic 100–140; BP diastolic 52–67
[~2022-11-18] VITALS: Ht 162.6 cm; Wt 75.5 kg
[~2022-11-18 16:08] MED LIST changes: -ACET-683 PO; -COLA100C5 PO; -IBUP-1022 PO; -PRENTAB9 PO; -TUMS750C5 PO
[2022-11-18] MEDS ORDERED: PRENTAB9 PO (16:24)
[2022-11-18] MEDS ORDERED: TUMS750C5 PO (16:24)
[2022-11-18] MEDS ORDERED: HOME MED LIST COMPLETE! XX SCH (16:25)
[2022-11-18] MEDS ORDERED: LACTATED RINGER'S 1000 ML IV STA (16:56)
[2022-11-18] MEDS ORDERED: OXYTOCIN DRIP 30 UNITS in IV 1 EA IV PRN (17:00)
[2022-11-18] MEDS ORDERED: OXYTOCIN INJ 10UNITS/ML 1ML VIAL IM PRN (17:00)
[2022-11-18] MEDS ORDERED: METHYLERGONOVINE MALEATE 0.2 MG/ML VIAL (J2210) IM PRN (17:00)
[2022-11-18] MEDS ORDERED: TRANEXAMIC ACID INJection 1,000 MG in NS 100 ML IV PRN (17:00)
[2022-11-18] MEDS ORDERED: CARBOPROST TROMETHAMINE 250 MCG/ML AMP IM PRN (17:00)
[2022-11-18] MEDS ORDERED: LIDOCAINE 1% MDV 20ML VIAL INFIL PRN (17:00)
[2022-11-18 17:35] LABS: HEMATOCRIT 37.2 % (36.0-47.0); HEMOGLOBIN 12.8 g/dl (12.0-15.5); MEAN CORPUSCULAR HEMOGLOBIN 33.4 pg (27.0-33.0); MEAN CORPUSCULAR HGB CONC 34.4 g/dl (32.0-36.5); MEAN CORPUSCULAR VOLUME 97.1 fl (80.0-96.0); PLATELET COUNT, AUTOMATED 284 10^3/uL (150-450); RED BLOOD COUNT 3.83 10^6/uL (4.00-5.40); WHITE BLOOD COUNT 13.3 10^3/uL (4.0-10.0)
[2022-11-18 17:55] LABS: LDH LACTATE DEHYDROGENASE 135 U/L (120-246)
[2022-11-18 17:56] LABS: ALT/SGPT < 9 U/L (7.0-40); AST/SGOT 16 U/L (<34); BILIRUBIN,TOTAL 0.4 MG/DL (0.3-1.2); CREATININE FOR GFR 0.44 MG/DL (0.55-1.30); GLOMERULAR FILTRATION RATE > 60.0 (>60)
[2022-11-18] MEDS ORDERED: diphenhydrAMINE 50MG/ML VIAL IV PRN (18:05)
[2022-11-18] MEDS ORDERED: NALOXONE INJ 0.4MG/1ML VIAL IV PRN (18:05)
[2022-11-18] MEDS ORDERED: FENTANYL/ROPIVACAINE/NACL BAG 100 ML EPIDURAL SCH (18:05)
[2022-11-18] MEDS ORDERED: ONDANSETRON 4MG 2ML VIAL IV PRN (18:05)
[2022-11-18] MEDS ORDERED: LR 500 ML IV PRN (18:05)
[2022-11-18] MEDS ORDERED: EPIDURAL/PCA KEYS XX PRN (18:05)
[2022-11-18] MEDS ORDERED: ePHEDrine SULFATE 25 MG/5 ML(5MG/ML) SYRINGE IVP PRN (18:05)
[2022-11-18 18:56] LABS: GC DNA AMPLIFICATION NEGATIVE (NEGATIVE)
[2022-11-18] MEDS ORDERED: LR 1,000 ML IV SCH (19:35)
[2022-11-18] MEDS ORDERED: DIBUCAINE 1% OINTMENT 30GM TOP PRN (20:25)
[2022-11-18] MEDS ORDERED: ANUSOL HC CREAM 30GM TOP PRN (20:25)
[2022-11-18] MEDS ORDERED: DOCUSATE SODIUM 100MG CAPSULE PO PRN (20:25)
[2022-11-18] MEDS ORDERED: IBUPROFEN 600MG TAB PO PRN (20:25)
[2022-11-18] MEDS ORDERED: MOM 30ML SUSPENSION UDC PO PRN (20:25)
[2022-11-18] MEDS ORDERED: IBUPROFEN 800 MG TAB PO PRN (20:25)
[2022-11-18] MEDS ORDERED: RHOGAM 300MCG (1500IU) INJ IM SCH (20:25)
[2022-11-18] MEDS ORDERED: ACETAMINOPHEN TAB 650MG DOSE (2X325MG) PO PRN (20:25)
[2022-11-18] MEDS ORDERED: ACETAMINOPHEN 500 MG TAB PO PRN (20:25)
[2022-11-19 06:00] VITALS: BP 101/50
[2022-11-19] MEDS ORDERED: PRENATAL VITAMINS CHEWABLE TABLET PO SCH (09:00)
[2022-11-19] MEDS ORDERED: IBUP-1022 PO (12:09)
[2022-11-19] MEDS ORDERED: COLA100C5 PO (12:09)
[2022-11-19] MEDS ORDERED: ACET-683 PO (12:09)
[2022-11-19 18:00] VITALS: BP 120/71
[2022-11-20] MEDS ORDERED: MEASLES,MUMPS,RUBELLA VACCINE INJ (MMR-II) SC.IMMUN ONE (09:00)
== END 2022-11-19 22:37 | disposition home or self-care (01) | DRG 560 ==
LOC: M LDO 16:08 → M LDI 16:57 → M OBS 21:55
PROVIDERS: ADMIT Advanced Practice Midwife; ATTEND Advanced Practice Midwife
PROC: 10E0XZZ Delivery of Products of Conception, External Approach (ICD-10-PCS; principal; 2022-11-18)
PROC: 10907ZC Drainage of Amniotic Fluid, Therapeutic from Products of Conception, Via Natural or Artificial Opening (ICD-10-PCS; 2022-11-18)
PROC: 0UQMXZZ Repair Vulva, External Approach (ICD-10-PCS; 2022-11-18)
DX: O99.334 Smoking (tobacco) complicating childbirth (principal); F17.200 Nicotine dependence, unspecified, uncomplicated; Z37.0 Single live birth; Z3A.39 39 weeks gestation of pregnancy

== ENCOUNTER 2024-01-21 06:18 | Emergency (ER) | payer OTHER ==
[~2024-01-21] VITALS: Ht 165.1 cm; Wt 60.0 kg
[2024-01-21 06:18] VITALS: BP 122/70; TEMP 98.6; O2SAT 98
[~2024-01-21 06:18] MED LIST changes: +ACET-683 PO; +COLA100C5 PO; +IBUP-1022 PO; +PRENTAB9 PO; +TUMS750C5 PO
[2024-01-21] MEDS: ONDANSETRON 4MG 2ML VIAL IV ONE (07:23)
[2024-01-21 07:50] LABS: BASO # 0.1 10^3/uL (0.0-0.2); BASO % 0.6 % (0.0-1.0); EOS % 0.1 % (0.0-3.0); HEMATOCRIT 42.9 % (36.0-47.0); HEMOGLOBIN 15.6 g/dl (12.0-15.5); LYMPH # 1.6 10^3/uL (1.5-5.0); LYMPH % 13.1 % (24.0-44.0); MEAN CORPUSCULAR HEMOGLOBIN 32.9 pg (27.0-33.0); MEAN CORPUSCULAR HGB CONC 36.4 g/dl (32.0-36.5); MEAN CORPUSCULAR VOLUME 90.5 fl (80.0-96.0); MONO # 0.8 10^3/uL (0.0-0.8); MONO % 6.3 % (2.0-8.0); NEUTROPHILS # 9.9 10^3/uL (1.5-8.5); NEUTROPHILS % 79.6 % (36.0-66.0); PLATELET COUNT, AUTOMATED 273 10^3/uL (150-450); RED BLOOD COUNT 4.74 10^6/uL (4.00-5.40); WHITE BLOOD COUNT 12.5 10^3/uL (4.0-10.0)
[2024-01-21 08:21] LABS: ALBUMIN 4.2 G/DL (3.2-5.2); ALKALINE PHOSPHATASE 84 U/L (46-116); ALT/SGPT 23 U/L (7.0-40); AST/SGOT 12 U/L (<34); BILIRUBIN,TOTAL 0.9 MG/DL (0.3-1.2); BLOOD UREA NITROGEN 16 MG/DL (9-23); CALCIUM LEVEL 9.6 MG/DL (8.5-10.1); CARBON DIOXIDE LEVEL 18 MMOL/L (20-31); CHLORIDE LEVEL 104 MMOL/L (98-107); CREATININE FOR GFR 0.46 MG/DL (0.55-1.30); GLOMERULAR FILTRATION RATE > 60.0 (>60); GLUCOSE, FASTING 86 MG/DL (60-100); POTASSIUM SERUM 3.8 MMOL/L (3.5-5.1); SODIUM LEVEL 137 MMOL/L (136-145); TOTAL PROTEIN 7.6 G/DL (5.7-8.2)
[2024-01-21 08:53] LABS: HCG, SERUM QUANTITATIVE 171326.8 MIU/ML (<4.2)
[2024-01-21] MEDS ORDERED: NS 1,000 ML IV ONE (09:15)
[2024-01-21] MEDS ORDERED: PYRIDOXINE 50 MG TAB PO ONE (09:45)
== END 2024-01-21 10:32 | disposition left against medical advice (07) ==
LOC: M ED 06:18
DX: R11.10 Vomiting, unspecified (principal); F17.200 Nicotine dependence, unspecified, uncomplicated; Z88.4 Allergy status to anesthetic agent; Z3A.00 Weeks of gestation of pregnancy not specified; Z79.899 Other long term (current) drug therapy; Z79.810 Long term (current) use of selective estrogen receptor modulators (SERMs); Z53.9 Procedure and treatment not carried out, unspecified reason
CPT/HCPCS: 80053; 81001; 84702; 85025; 96374; 99283; J2405

== ENCOUNTER → 2024-06-04 | Outpatient (CLI) | payer OTHER | LOC: M WHC 13:45 | PROVIDERS: ATTEND Obstetrics & Gynecology | DX: Z34.92 Encounter for supervision of normal pregnancy, unspecified, second trimester (principal) ==

== ENCOUNTER → 2024-07-26 | Outpatient (REF) | payer OTHER | LOC: M PLALAB 12:37 | PROVIDERS: ATTEND Obstetrics & Gynecology | DX: Z34.83 Encounter for supervision of other normal pregnancy, third trimester (principal); Z3A.35 35 weeks gestation of pregnancy ==

== ENCOUNTER → 2024-08-09 | Outpatient (CLI) | payer OTHER ==
[2024-08-09 13:06] LABS: HEMATOCRIT 37.1 % (36.0-47.0); HEMOGLOBIN 12.7 g/dl (12.0-15.5); MEAN CORPUSCULAR HEMOGLOBIN 34.1 pg (27.0-33.0); MEAN CORPUSCULAR HGB CONC 34.2 g/dl (32.0-36.5); MEAN CORPUSCULAR VOLUME 99.7 fl (80.0-96.0); PLATELET COUNT, AUTOMATED 296 10^3/uL (150-450); RED BLOOD COUNT 3.72 10^6/uL (4.00-5.40); WHITE BLOOD COUNT 16.9 10^3/uL (4.0-10.0)
[2024-08-09 13:14] LABS: FREE T4 0.98 NG/DL (0.89-1.76); THYROID STIMULATING HORMONE 0.826 uIU/ML (0.55-4.78)
[2024-08-09 14:05] LABS: HIV 1&2 SCREEN NEGATIVE (NEGATIVE)
[2024-08-09 14:13] LABS: HEPATITIS C VIRUS ABY INDEX < 0.02 INDEX (<0.8)
[2024-08-09 14:35] LABS: GC DNA AMPLIFICATION NEGATIVE (NEGATIVE)
== END ==
LOC: M PLALAB 10:38
PROVIDERS: ATTEND Obstetrics & Gynecology
DX: Z34.92 Encounter for supervision of normal pregnancy, unspecified, second trimester (principal)

== ENCOUNTER 2024-08-21 00:45 | Inpatient (IN) | payer OTHER ==
[2024-08-21] VITALS (8 sets, daily range): BP systolic 109–143; BP diastolic 57–82; O2SAT 98–100
[2024-08-21] MEDS ORDERED: CARBOPROST TROMETHAMINE 250 MCG/ML AMP IM PRN (01:00)
[2024-08-21] MEDS ORDERED: METHYLERGONOVINE MALEATE 0.2MG/ML 1ML VIAL IM PRN (01:00)
[2024-08-21] MEDS ORDERED: OXYTOCIN INJ 10UNITS/ML 1ML VIAL IM PRN (01:00)
[2024-08-21] MEDS ORDERED: TRANEXAMIC ACID INJection 1,000 MG in NS 100 ML IV PRN (01:00)
[2024-08-21] MEDS ORDERED: LIDOCAINE 1% MDV 20ML VIAL INFIL PRN (01:00)
[2024-08-21] MEDS ORDERED: OXYTOCIN DRIP 30 UNITS in IV 1 EA IV PRN (01:00)
[2024-08-21] MEDS ORDERED: OXYTOCIN 30UNITS IN 0.9% NaCl 500ML IV BAG As Ordered ONE (01:02)
[2024-08-21 01:20] LABS: HEMATOCRIT 37.8 % (36.0-47.0); HEMOGLOBIN 13.1 g/dl (12.0-15.5); MEAN CORPUSCULAR HEMOGLOBIN 33.9 pg (27.0-33.0); MEAN CORPUSCULAR HGB CONC 34.7 g/dl (32.0-36.5); MEAN CORPUSCULAR VOLUME 97.7 fl (80.0-96.0); PLATELET COUNT, AUTOMATED 297 10^3/uL (150-450); RED BLOOD COUNT 3.87 10^6/uL (4.00-5.40); WHITE BLOOD COUNT 19.2 10^3/uL (4.0-10.0)
[2024-08-21] MEDS ORDERED: IBUPROFEN 600MG TAB PO PRN (01:40)
[2024-08-21] MEDS ORDERED: ACETAMINOPHEN 325 MG TAB PO PRN (01:40)
[2024-08-21] MEDS ORDERED: RHOGAM 300MCG (1500IU) INJ IM SCH (01:40)
[2024-08-21] MEDS ORDERED: METHYLERGONOVINE MALEATE 0.2 MG TAB PO PRN (01:40)
[2024-08-21] MEDS ORDERED: DOCUSATE SODIUM 100MG CAPSULE PO PRN (01:40)
[2024-08-21 01:54] LABS: HEPATITIS B SURFACE ANTIGEN NEGATIVE (NEGATIVE)
[2024-08-21] MEDS: ACETAMINOPHEN 500 MG TAB PO PRN (03:03)
[2024-08-21] MEDS: PRENATAL VITAMINS CHEWABLE TABLET PO SCH (09:00)
[2024-08-21] MEDS: DIBUCAINE 1% OINTMENT 30GM TOP PRN (14:15)
[2024-08-21] MEDS: IBUPROFEN 800 MG TAB PO PRN (20:25)
[2024-08-22 05:38] VITALS: BP 118/68; O2SAT 100
[2024-08-23] MEDS ORDERED: MEASLES,MUMPS,RUBELLA VACCINE INJ (MMR-II) SC.IMMUN ONE (09:00)
== END 2024-08-22 11:10 | disposition home or self-care (01) | DRG 560 ==
LOC: M LDI 00:45 → M OBS 02:38
PROVIDERS: ADMIT Advanced Practice Midwife; ATTEND Advanced Practice Midwife
PROC: 10E0XZZ Delivery of Products of Conception, External Approach (ICD-10-PCS; principal; 2024-08-21)
DX: O80 Encounter for full-term uncomplicated delivery (principal); Z37.0 Single live birth; Z3A.38 38 weeks gestation of pregnancy

== ENCOUNTER 2025-01-06 07:24 | Emergency (ER) | payer MEDICAID, OTHER ==
[~2025-01-06] VITALS: Ht 165.1 cm; Wt 67.8 kg
[2025-01-06 08:44] LABS: BASO % 0.2 % (0.0-1.0); EOS % 0.1 % (0.0-3.0); HEMATOCRIT 43.4 % (36.0-47.0); HEMOGLOBIN 15.8 g/dl (12.0-15.5); LYMPH # 0.9 10^3/uL (1.5-5.0); LYMPH % 7.4 % (24.0-44.0); MEAN CORPUSCULAR HEMOGLOBIN 31.9 pg (27.0-33.0); MEAN CORPUSCULAR HGB CONC 36.4 g/dl (32.0-36.5); MEAN CORPUSCULAR VOLUME 87.7 fl (80.0-96.0); MONO # 0.7 10^3/uL (0.0-0.8); MONO % 5.2 % (2.0-8.0); NEUTROPHILS # 11.1 10^3/uL (1.5-8.5); NEUTROPHILS % 86.8 % (36.0-66.0); PLATELET COUNT, AUTOMATED 312 10^3/uL (150-450); RED BLOOD COUNT 4.95 10^6/uL (4.00-5.40); WHITE BLOOD COUNT 12.8 10^3/uL (4.0-10.0)
[2025-01-06 09:17] LABS: LIPASE 21 U/L (12-53)
[2025-01-06 09:18] LABS: HCG, SERUM QUALITATIVE NEGATIVE (NEGATIVE)
[2025-01-06 09:19] LABS: ALBUMIN 4.5 G/DL (3.2-5.2); ALKALINE PHOSPHATASE 89 U/L (35-104); ALT/SGPT 30 U/L (7.0-40); AST/SGOT 9 U/L (<34); BILIRUBIN,DIRECT 0.2 MG/DL (<0.4); BILIRUBIN,TOTAL 0.6 MG/DL (0.3-1.2); BLOOD UREA NITROGEN 21 MG/DL (9-23); CALCIUM LEVEL 10.2 MG/DL (8.5-10.1); CARBON DIOXIDE LEVEL 17 MMOL/L (20-31); CHLORIDE LEVEL 105 MMOL/L (98-107); GLOMERULAR FILTRATION RATE > 60.0 (>60); GLUCOSE, FASTING 160 MG/DL (60-100); POTASSIUM SERUM 3.9 MMOL/L (3.5-5.1); SODIUM LEVEL 139 MMOL/L (136-145); TOTAL PROTEIN 8.2 G/DL (5.7-8.2)
[2025-01-06] MEDS: LIDOCAINE VISCOUS 2% SOLN 15ML UDC PO ONE (10:10)
[2025-01-06] MEDS: ONDANSETRON 4MG 2ML VIAL IV ONE (10:41)
[2025-01-06] MEDS: MAALOX 30 ML SUSP *UDC PO ONE (10:42)
[2025-01-06] MEDS: NS (Normal Saline) 0.9% 1,000 ML IV ONE (10:43)
[2025-01-06] MEDS ORDERED: ISOVUE-370 76% 100ML VIAL As Ordered ONE (11:23)
[2025-01-06] MEDS: PANTOPRAZOLE 40MG VIAL IV ONE (12:54)
[2025-01-06] MEDS: MORPHINE 4 MG/ML 1ML VIAL IV ONE (12:54)
[2025-01-06] MEDS: SUCRALFATE 1 GM TAB PO ONE (13:08)
[2025-01-06] MEDS ORDERED: PANT40TA29 PO (13:59)
[2025-01-06] MEDS ORDERED: ONDA-282 PO (13:59)
[2025-01-06 14:31] VITALS: BP 107/61; TEMP 98.6; O2SAT 98
== END 2025-01-06 14:38 | disposition home or self-care (01) ==
LOC: EDBD 07:24 → M ED 07:24
DX: K29.00 Acute gastritis without bleeding (principal); K44.9 Diaphragmatic hernia without obstruction or gangrene; F17.200 Nicotine dependence, unspecified, uncomplicated; R16.0 Hepatomegaly, not elsewhere classified; Z79.899 Other long term (current) drug therapy
CPT/HCPCS: 71275; 74174; 80048; 80076; 83690; 84703; 85025; 93005; 96361; 96374; 96375; 99284; J2405; J2470; Q9967